=== PATIENT | male | born 1965 | race Caucasian/White ===

== ENCOUNTER 2017-08-04 06:45 | Day surgery (SDC) | payer BC ==
[~2017-08-04] VITALS: Ht 188 cm; Wt 145.1 kg
[2017-08-04] MEDS ORDERED: CLINDAMYCIN PHOS 900 MG/ D5W 50 ML PREMIX IV ONE (07:30)
[2017-08-04] MEDS ORDERED: SEVOFLURANE 15 MIN GAS INH ONE (08:15)
[2017-08-04] MEDS ORDERED: PROPOFOL 200MG/ 20ML VIAL (DIPRIVAN) IV ONE (08:15)
[2017-08-04] MEDS ORDERED: DEXAMETHASONE SOD PHOSPHATE 4 MG/ML VIAL IVP ONE (08:15)
[2017-08-04] MEDS ORDERED: KETOROLAC TROMETHAMINE 30 MG VIAL IVP ONE (08:15)
[2017-08-04] MEDS ORDERED: LR 1,000 ML IV.SOLN IV ONE (08:15)
[2017-08-04] MEDS ORDERED: fentaNYL CITRATE 250 MCG/5 ML AMP IV ONE (08:15)
[2017-08-04] MEDS ORDERED: MIDAZOLAM HCL 5 MG/5 ML VIAL IVP ONE (08:15)
[2017-08-04] MEDS ORDERED: fentaNYL CITRATE/PF 100 MCG/2 ML AMP IVP ONE (08:15)
[2017-08-04] MEDS ORDERED: SUCCINYLCHOLINE CHLORIDE 20 MG/ML(QUELICIN) IVP ONE (08:15)
[2017-08-04] MEDS ORDERED: BETAMET ACET/BETAMET NA PH 30 MG/5 ML VIAL IM ONE (08:15)
[2017-08-04] MEDS ORDERED: MORPHINE SULFATE 10MG/10ML PF AMP EP ONE (08:15)
[2017-08-04] MEDS ORDERED: ROCURONIUM BROMIDE 10 MG/ML (ZEMURON) IV ONE (08:15)
[2017-08-04] MEDS ORDERED: NS IRRIG SOLN 5000 ML IR ONE (08:15)
[2017-08-04] MEDS ORDERED: LR 1,000 ML IV SCH (09:29)
[2017-08-04] MEDS ORDERED: HYDROmorphone 1 MG INJ. 1 MG/ML AMPUL IVP PRN (09:30)
[2017-08-04] MEDS ORDERED: HYDROmorphone 2 MG/ML VIAL IVP PRN ×2 (09:30)
[2017-08-04] MEDS ORDERED: MEPERIDINE HCL/PF 25 MG/ML DISP.SYRIN IVP PRN (09:30)
[2017-08-04] MEDS ORDERED: D5LR 1,000 ML IV SCH (09:31)
[2017-08-04] MEDS ORDERED: ACETAMINOPHEN 325 MG TABLET PO PRN (09:45)
[2017-08-04] MEDS ORDERED: HYDROcodone/ACETAMIN 5-325 MG TAB (NORCO/ VICODIN) PO PRN (09:45)
[2017-08-04] MEDS ORDERED: DIPHENHYDRAMINE HCL 50 MG CAPSULE PO PRN (09:45)
[2017-08-04] MEDS ORDERED: MORPHINE 4 MG/ML INJ. SYRINGE IVP PRN (09:45)
[2017-08-04 10:55] VITALS: BP_SYST 105
== END 2017-08-04 12:45 | disposition home or self-care (01) ==
LOC: SDS 06:45 → SMU 06:46 → SDS 12:45
PROVIDERS: ATTEND Orthopaedic Surgery
DX: M23.222 Derangement of posterior horn of medial meniscus due to old tear or injury, left knee (principal); M23.252 Derangement of posterior horn of lateral meniscus due to old tear or injury, left knee; Z88.8 Allergy status to other drugs, medicaments and biological substances; Z79.899 Other long term (current) drug therapy; E66.01 Morbid (severe) obesity due to excess calories; I10 Essential (primary) hypertension; Z68.41 Body mass index [BMI] 40.0-44.9, adult
CPT/HCPCS: 29880; J0330; J0702; J1100; J1885; J2250; J2274; J2704; J3010 ×2; J3490; J7120